=== PATIENT | female | born 1960 | race Caucasian/White ===

== ENCOUNTER 2017-10-14 03:45 | Emergency (ER) | payer OTHER ==
[~2017-10-14] VITALS: Ht 170.2 cm; Wt 90.7 kg
[~2017-10-14 03:45] MED LIST: AUGMENTIN 875875 MG PO; AZOR 10-20 MG1 EACH; AZOR 5-40 MG T1 EACH; COMBIVENT INH; COZAAR 25 MG TA25 M2; NEXIUM 40 MG CA40 M1; PREDNISONE 20 M20 M1 PO; PREDNISONE50 MG PO; PREMARIN0.625 MG; TORADOL 10 MG T10 MG PO; TRAMADOL 50 MG50 MG; ZPAK PO
[2017-10-14] MEDS ORDERED: PROTONIX40 M1 (04:00)
[2017-10-14] MEDS ORDERED: NORVASC5 MG PO (04:00)
[2017-10-14] MEDS ORDERED: CELEBREX 200 M200 M1 (04:01)
[2017-10-14] MEDS ORDERED: PREDNISONE50 MG PO (04:59)
[2017-10-14 05:11] VITALS: BP 105/52
--- NOTE | 2017-10-14 15:47 | EKG ---
[place] [address] ELECTROCARDIOGRAM REPORT Name: LION DEAL Room: [facility]#: [id number] Admission: 10/14/17 Attend Phys: Discharge: 10/14/17 Date of : 62 Report #: [id number] THIS REPORT FOR: //name// [facility] ED Test Date: 2017-10-14 Test Time: 04:17:50 Pat Name: LION DEAL Department: Room: Gender: F Channel Sales Manager: [id number] : 1960 Requested By: Katarina Vasques Order Number: [id number] MD: Landry Elaine Measurements Intervals [place] Rate: 87 P: 44 SC: 147 QRS: 31 QRSD: 102 T: 13 QT: 353 QTc: 425 Interpretive Statements Sinus rhythm No previous ECG available for comparison Electronically Signed On 10-14-2017 15:47:20 SKIN CARE THERAPIST by Landry Elaine [email or web address] <ELECTRONICALLY SIGNED> By: Landry Elaine MD, LOCATED WITHIN [facility] 10/14/17 1547 0417 0417 Landry Elaine MD, FACC /EPI
== END 2017-10-14 05:11 | disposition home or self-care (01) ==
LOC: M.ERS 03:45
DX: R09.1 Pleurisy (principal); I10 Essential (primary) hypertension; Z86.19 Personal history of other infectious and parasitic diseases; Z88.2 Allergy status to sulfonamides; Z88.1 Allergy status to other antibiotic agents; Z87.891 Personal history of nicotine dependence

== ENCOUNTER → 2017-10-20 | Outpatient (CLI) | payer OTHER ==
[~2017-10-20] MED LIST changes: +AUGMENTIN 875-1 EACH PO; +BENICAR40 MG PO; +BENTYL 10 MG CA10 M1 PO; +CELEBREX 200 M200 M1; +LIDOPATCH1 EACH TOP; +LOPERAMIDE 2 MG2 M1 PO; +LUNESTA1 MG PO; +NORVASC5 MG PO; +PROAIR HFA8.5 GM INH; +PROTONIX40 M1; +SINGULAIR 10 MG10 M1 PO; +TRAMADOL 50 MG50 MG PO
--- NOTE | 2017-10-20 15:02 | 2DMMODE ---
[place] [address] 2 D/M-MODE ECHOCARDIOGRAM Name: LION DEAL Room: [facility]#: [id number] Admission: 10/20/17 Attend Phys: Mikhail Kruse MD Discharge: Date of : 62 Date of Service: 10/20/17 1501 Report #: [id number] THIS REPORT FOR: //name// APPROVED REPORT Study performed: 10/20/2017 09:06:54 EXAM: Comprehensive 2D, Doppler, and color-flow Echocardiogram Patient Location: Out-Patient Status: routine BSA: 2.02 HR: 84 bpm BP: 148/80 mmHg Other Information Study Quality: Good Indications Dyspnea 2D Dimensions LVEF(%): 74.83 (>50%) IVSd: 8.59 (7-11mm) LVOT Diam: 19.66 (18-24mm) LVDd: 48.53 mm PWd: 10.84 (7-11mm) Ascending Ao: 28.88 (22-36mm) LVDs: 27.30 (25-40mm) Aortic Root: 24.83 mm Latham's LVEF: 74.83 % Volumes Left Atrial Volume (Systole) LA ESV Index: 22.00 mL/m2 Aortic Valve AoV Peak Mayito.: 1.46 m/s AO Peak Gr.: 8.53 mmHg LVOT Max P.02 mmHg AO Mean Gr.: 4.31 mmHg LVOT Mean P.70 mmHg LVOT Max V: 0.87 m/s AO V2 VTI: 25.19 cm LVOT Mean V: 0.61 m/s LAN (VTI): 2.43 cm2 LVOT V1 VTI: 20.18 cm Mitral Valve E/A Ratio: 1.05 MV Decel. Time: 236.20 [place] [address] 2 D/M-MODE ECHOCARDIOGRAM Name: LION DEAL Room: [facility]#: [id number] Admission: 10/20/17 Attend Phys: Mikhail Kruse MD Discharge: Date of : 62 Date of Service: 10/20/17 1501 Report #: [id number] MV E Max Mayito.: 0.86 m/s MV PHT: 68.50 ms MVA (PHT): 3.21 cm2 TDI E/Lateral E': 6.14 E/Medial E': 7.17 Medial E' Mayito.: 0.12 m/s Lateral E' Mayito.: 0.14 m/s Pulmonary Valve PV Peak Mayito.: 1.29 m/s PV Peak Gr.: 6.68 mmHg Tricuspid Valve TR Peak Gr.: 26.69 mmHg RVSP: 31.69 mmHg Left Ventricle The left ventricle is normal size. There is normal LV segmental wall motion. There is normal left ventricular wall thickness. Left ventricular systolic function is normal. The left ventricular ejection fraction is within the normal range. LVEF is 55-60%. The left ventricular diastolic function is normal. Right Ventricle The right ventricle is normal size. The right ventricular systolic function is normal. Atria The left atrium size is normal. The right atrium size is normal. Aortic Valve Aortic valve is mildly calcified. Mild aortic regurgitation. There is no aortic valvular stenosis. Mitral Valve The mitral valve is normal in structure. There is no mitral valve regurgitation noted. No evidence of mitral valve stenosis. Tricuspid Valve The tricuspid valve is normal in structure. Mild tricuspid regurgitation. The RVSP is _35 mmHg. Pulmonic Valve The pulmonary valve is normal in structure. There is no pulmonic [place] [address] 2 D/M-MODE ECHOCARDIOGRAM Name: LION DEAL Room: [facility]#: [id number] Admission: 10/20/17 Attend Phys: Mikhail Kruse MD Discharge: Date of : 62 Date of Service: 10/20/17 1501 Report #: [id number] Great Vessels The aortic root is normal in size. IVC is normal in size and collapses with >50% inspiration Pericardium There is no pericardial effusion. <Conclusion> LVEF is 55-60%. <ELECTRONICALLY SIGNED> By: Andres Stanley MD, FACC 10/20/17 1501 150 150 Andres Stanley MD, FACC /INF
== END ==
LOC: M.CRD 08:17
DX: I08.2 Rheumatic disorders of both aortic and tricuspid valves (principal)

== ENCOUNTER 2018-06-25 20:38 | Emergency (ER) | payer OTHER ==
[~2018-06-25] VITALS: Ht 170.2 cm; Wt 90.7 kg
[~2018-06-25 20:38] MED LIST changes: -AUGMENTIN 875-1 EACH PO; -BENICAR40 MG PO; -BENTYL 10 MG CA10 M1 PO; -LIDOPATCH1 EACH TOP; -LOPERAMIDE 2 MG2 M1 PO; -LUNESTA1 MG PO; -PROAIR HFA8.5 GM INH; -SINGULAIR 10 MG10 M1 PO; -TRAMADOL 50 MG50 MG PO
[2018-06-25] MEDS ORDERED: BENICAR40 MG PO (20:47)
[2018-06-25] MEDS ORDERED: SINGULAIR 10 MG10 M1 PO (20:48)
[2018-06-25] MEDS ORDERED: TRAMADOL 50 MG50 MG PO (20:49)
[2018-06-25] MEDS ORDERED: LOPERAMIDE 2 MG2 M1 PO (20:49)
[2018-06-25] MEDS ORDERED: LIDOPATCH1 EACH TOP (20:49)
[2018-06-25] MEDS ORDERED: BENTYL 10 MG CA10 M1 PO (20:49)
[2018-06-25] MEDS ORDERED: LUNESTA1 MG PO (20:50)
[2018-06-25 21:32] LABS: ABSOLUTE BASOPHILS 0.1 thou/uL (0.0-0.2); ABSOLUTE LYMPHOCYTES 1.5 thou/uL (0.8-5.3); ABSOLUTE MONOCYTES 0.9 thou/uL (0.0-1.2); ABSOLUTE NEUTROPHILS 12.3 thou/uL (1.6-8.1); BASOPHILS 0.3 %; EOSINOPHILS 0.2 %; HEMATOCRIT 25.6 % (37.0-47.0); HEMOGLOBIN 7.6 gm/dL (12.0-15.0); LYMPHOCYTES 10.1 %; MCH 21.2 pg (26.0-34.0); MCHC 29.8 g/dL (28.0-37.0); MCV 71.2 fL (80.0-100.0); MONOCYTES 6.4 %; MPV 6.9 fl. (7.2-11.1); NUCLEATED RBCS 0 /100WBC; PLATELET COUNT* 547 thou/uL (150-400); RDW-CV 16.8 % (10.5-14.5); WBC 14.9 thou/uL (4.0-11.0)
[2018-06-25 21:36] LABS: ANION GAP 4 mmol/L (7-16); BUN 13 mg/dL (7-18); CALCIUM 8.1 mg/dL (8.5-10.1); CHLORIDE 102 mmol/L (98-107); CO2 30 mmol/L (21-32); CREATININE 0.8 mg/dL (0.6-1.3); GLUCOSE 116 mg/dL (70-99); POTASSIUM 3.7 mmol/L (3.5-5.1); SODIUM 136 mmol/L (136-145)
[2018-06-25 21:47] LABS: ALBUMIN 3.4 g/dL (3.4-5.0); ALKALINE PHOSPHATASE 56 U/L (46-116); SGOT 10 U/L (15-37); SGPT 13 U/L (30-65); TOTAL BILIRUBIN 0.7 mg/dL (<0.1-1.0); TOTAL PROTEIN 6.7 g/dL (6.4-8.2); TROPONIN-I LEVEL <0.06 ng/mL (<0.06)
[2018-06-25 22:10] LABS: INFLUENZA A ANTIGEN None Detected (None Detect); INFLUENZA B ANTIGEN None Detected (None Detect)
[2018-06-25 22:43] LABS: HYPOCHROMASIA 2+
[2018-06-25 22:44] LABS: MICROCYTES 2+; PLATELET ESTIMATE INCREASED
[2018-06-25] MEDS ORDERED: AUGMENTIN 875-1 EACH PO (22:49)
[2018-06-25] MEDS ORDERED: PROAIR HFA8.5 GM INH (22:49)
[2018-06-25 23:03] VITALS: BP 134/67
--- NOTE | 2018-06-26 14:00 | EKG ---
[place] [address] ELECTROCARDIOGRAM REPORT Name: TOYINLION AUSTIN Room: [facility]#: [id number] Admission: 06/25/18 Attend Phys: Discharge: 06/25/18 Date of : 62 Report #: [id number] THIS REPORT FOR: //name// [facility] ED Test Date: 2018-06-25 Test Time: 21:08:01 Pat Name: LION DEAL Department: Room: Gender: F Dry Mill Operator: RIGOBERTO : 1960 Requested By: Deepti Christy Order Number: [id number] MD: Rodriguez Fairbanks Measurements Intervals [place] Rate: 105 P: 30 ID: 136 QRS: 21 QRSD: 97 T: 19 QT: 324 QTc: 429 Interpretive Statements Sinus tachycardia RSR' in V1 or V2, probably normal variant Compared to ECG 10/14/2017 04:17:50 RSR' in V1 or V2 now present Sinus rhythm no longer present Electronically Signed On 06-26-2018 13:59:56 CDT by Rodriguez Fairbanks [email or web address] <ELECTRONICALLY SIGNED> By: Ciera Fairbanks MD, [facility] 06/26/18 1359 07 07 F. Rodriguez Fairbanks MD, [facility] /EPI
== END 2018-06-25 23:04 | disposition home or self-care (01) ==
LOC: M.ERS 20:38
PROVIDERS: Nurse Practitioner Family
DX: J18.9 Pneumonia, unspecified organism (principal); D64.9 Anemia, unspecified; I10 Essential (primary) hypertension; Z88.1 Allergy status to other antibiotic agents; Z88.8 Allergy status to other drugs, medicaments and biological substances; Z87.891 Personal history of nicotine dependence

== ENCOUNTER → 2018-08-03 | Outpatient (CLI) | payer OTHER ==
[~2018-08-03] MED LIST changes: +AUGMENTIN 875-1 EACH PO; +BENICAR40 MG PO; +BENTYL 10 MG CA10 M1 PO; +LIDOPATCH1 EACH TOP; +LOPERAMIDE 2 MG2 M1 PO; +LUNESTA1 MG PO; +PROAIR HFA8.5 GM INH; +SINGULAIR 10 MG10 M1 PO; +TRAMADOL 50 MG50 MG PO
[2018-08-03 12:49] LABS: HEMOGLOBIN 12.1 gm/dL (12.0-15.0); MCH 26.3 pg (26.0-34.0); MCHC 31.8 g/dL (28.0-37.0); MCV 82.8 fL (80.0-100.0); MPV 7.1 fl. (7.2-11.1); NUCLEATED RBCS 0 /100WBC; PLATELET COUNT* 470 thou/uL (150-400); RBC 4.58 mil/uL (4.20-5.00); RDW-CV 25.1 % (10.5-14.5); WBC 8.1 thou/uL (4.0-11.0)
[2018-08-03 13:38] LABS: ABSOLUTE BASOPHILS 0.1 thou/uL (0.0-0.2); ABSOLUTE EOSINOPHILS 0.2 thou/uL (0.0-0.7); ABSOLUTE LYMPHOCYTES 2.1 thou/uL (0.8-5.3); ABSOLUTE MONOCYTES 0.8 thou/uL (0.0-1.2); ABSOLUTE NEUTROPHILS 4.9 thou/uL (1.6-8.1); PLATELET ESTIMATE INCREASED
[2018-08-03 13:39] LABS: ANISOCYTOSIS 3+
[2018-08-03 13:40] LABS: MICROCYTES 2+
== END ==
LOC: M.LAB 12:18
DX: K44.9 Diaphragmatic hernia without obstruction or gangrene (principal); M41.84 Other forms of scoliosis, thoracic region; D50.9 Iron deficiency anemia, unspecified; I25.10 Atherosclerotic heart disease of native coronary artery without angina pectoris

== ENCOUNTER 2018-09-14 09:11 | Emergency (ER) | payer OTHER ==
[~2018-09-14] VITALS: Ht 170.2 cm; Wt 90.7 kg
[2018-09-14] MEDS ORDERED: BENADRYL25 MG PO (09:26)
[2018-09-14] MEDS ORDERED: MELATONIN10 M1 PO (09:26)
[2018-09-14] MEDS ORDERED: HYDROCODONE-AP1 EAC6 PO (12:00)
[2018-09-14 12:22] VITALS: BP 139/77
== END 2018-09-14 12:23 | disposition home or self-care (01) ==
LOC: M.ERS 09:11
DX: S52.592A Other fractures of lower end of left radius, initial encounter for closed fracture (principal); S52.612A Displaced fracture of left ulna styloid process, initial encounter for closed fracture; I10 Essential (primary) hypertension; Z87.891 Personal history of nicotine dependence; Z88.1 Allergy status to other antibiotic agents; Z88.2 Allergy status to sulfonamides; Z88.8 Allergy status to other drugs, medicaments and biological substances; Z87.01 Personal history of pneumonia (recurrent); Z86.19 Personal history of other infectious and parasitic diseases; Z86.2 Personal history of diseases of the blood and blood-forming organs and certain disorders involving the immune mechanism; W18.39XA Other fall on same level, initial encounter; Y93.89 Activity, other specified; Y92.89 Other specified places as the place of occurrence of the external cause; Y99.8 Other external cause status

== ENCOUNTER → 2018-12-16 | Outpatient (CLI) | payer OTHER ==
[~2018-12-16] MED LIST changes: +BENADRYL25 MG PO; +HYDROCODONE-AP1 EAC6 PO; +MELATONIN10 M1 PO
[2018-12-16 08:19] LABS: HEMATOCRIT 35.8 % (37.0-47.0); HEMOGLOBIN 11.9 gm/dL (12.0-15.0); MCH 29.5 pg (26.0-34.0); MCHC 33.4 g/dL (28.0-37.0); MCV 88.3 fL (80.0-100.0); MPV 7.4 fl. (7.2-11.1); RBC 4.05 mil/uL (4.20-5.00); RDW-CV 13.6 % (10.5-14.5); WBC 6.9 thou/uL (4.0-11.0)
[2018-12-16 08:54] LABS: ALBUMIN 3.7 g/dL (3.4-5.0); CALCIUM 8.7 mg/dL (8.5-10.1); CREATININE 0.8 mg/dL (0.6-1.3); POTASSIUM 4.2 mmol/L (3.5-5.1); TOTAL BILIRUBIN 0.5 mg/dL (<0.1-1.0); URIC ACID* 5.8 mg/dL (2.6-7.2)
== END ==
LOC: M.LAB 07:48
PROVIDERS: Family Medicine
DX: E55.9 Vitamin D deficiency, unspecified (principal); M79.10 Myalgia, unspecified site

== ENCOUNTER 2019-01-16 06:32 | Emergency (ER) | payer OTHER ==
[~2019-01-16] VITALS: Ht 170.2 cm; Wt 90.7 kg
[2019-01-16] MEDS ORDERED: PROTONIX40 M1 PO (06:41)
[2019-01-16 07:22] LABS: ABSOLUTE LYMPHOCYTES 1.2 thou/uL (0.8-5.3); ABSOLUTE MONOCYTES 0.7 thou/uL (0.0-1.2); ABSOLUTE NEUTROPHILS 3.7 thou/uL (1.6-8.1); BASOPHILS 0.5 %; EOSINOPHILS 0.4 %; HEMATOCRIT 34.8 % (37.0-47.0); HEMOGLOBIN 11.5 gm/dL (12.0-15.0); LYMPHOCYTES 20.8 %; MCH 28.7 pg (26.0-34.0); MCHC 33.1 g/dL (28.0-37.0); MCV 86.8 fL (80.0-100.0); MPV 7.5 fl. (7.2-11.1); NUCLEATED RBCS 0 /100WBC; PLATELET COUNT* 366 thou/uL (150-400); POLYS 65.3 %; RBC 4.01 mil/uL (4.20-5.00); RDW-CV 13.2 % (10.5-14.5); WBC 5.6 thou/uL (4.0-11.0)
[2019-01-16 07:55] LABS: ALBUMIN 3.3 g/dL (3.4-5.0); ALKALINE PHOSPHATASE 50 U/L (46-116); ANION GAP 10 mmol/L (7-16); BUN 13 mg/dL (7-18); CALCIUM 8.4 mg/dL (8.5-10.1); CHLORIDE 105 mmol/L (98-107); CO2 26 mmol/L (21-32); CREATININE 0.9 mg/dL (0.6-1.3); GLUCOSE 103 mg/dL (70-99); LIPASE 194 U/L (73-393); POTASSIUM 3.3 mmol/L (3.5-5.1); SGOT 18 U/L (15-37); SGPT 19 U/L (30-65); SODIUM 141 mmol/L (136-145); TOTAL BILIRUBIN 0.2 mg/dL (<0.1-1.0); TOTAL PROTEIN 6.6 g/dL (6.4-8.2); TROPONIN-I LEVEL <0.06 ng/mL (<0.06)
[2019-01-16 07:55] LABS: URINE BILIRUBIN NEGATIVE (Negative); URINE BLOOD NEGATIVE (Negative); URINE CLARITY CLEAR; URINE COLOR YELLOW; URINE GLUCOSE-RANDOM NEGATIVE (Negative); URINE KETONES NEGATIVE (Negative); URINE LEUKOCYTES-REFLEX NEGATIVE (Negative); URINE NITRITE-REFLEX NEGATIVE (Negative); URINE PROTEIN TRACE (Negative); URINE SPECIFIC GRAVITY >= 1.030 (1.005-1.030); URINE UROBILINOGEN 0.2 E.U./dl (0.2-1.0)
[2019-01-16] MEDS ORDERED: FLAGYL500 M1 PO (08:02)
[2019-01-16 08:34] VITALS: BP 115/66
--- NOTE | 2019-01-16 13:12 | EKG ---
[place] [address] ELECTROCARDIOGRAM REPORT Name: LION DEAL Room: [facility]#: [id number] Admission: 01/16/19 Attend Phys: Discharge: 01/16/19 Date of : 62 Report #: [id number] THIS REPORT FOR: //name// [facility] ED Test Date: 2019-01-16 Test Time: 07:13:38 Pat Name: LION DEAL Department: Room: Gender: F Chief Nursing Executive: : 1960 Requested By: Raphael Cobos Order Number: [id number] MD: Andres Stanley Measurements Intervals [place] Rate: 90 P: 36 [place]: 142 QRS: 24 QRSD: 109 T: 14 QT: 346 QTc: 424 Interpretive Statements Sinus rhythm Compared to ECG 06/25/2018 21:08:01 Sinus tachycardia no longer present Electronically Signed On 01-16-2019 13:12:17 CDT by Andres Stanley [email or web address] <ELECTRONICALLY SIGNED> By: Andres Stanley MD, [facility] 01/16/19 1312 0713 2 Andres Stanley MD, FACC /EPI
== END 2019-01-16 08:35 | disposition home or self-care (01) ==
LOC: M.ERS 06:32
PROVIDERS: Emergency Medicine Emergency Medical Services
DX: R11.2 Nausea with vomiting, unspecified (principal); R19.7 Diarrhea, unspecified; K58.9 Irritable bowel syndrome, unspecified; I10 Essential (primary) hypertension; Z87.891 Personal history of nicotine dependence; Z88.2 Allergy status to sulfonamides; Z88.8 Allergy status to other drugs, medicaments and biological substances; Z88.1 Allergy status to other antibiotic agents; Z86.2 Personal history of diseases of the blood and blood-forming organs and certain disorders involving the immune mechanism

== ENCOUNTER → 2020-03-21 | Outpatient (CLI) | payer OTHER ==
[~2020-03-21] MED LIST changes: +FLAGYL500 M1 PO; +PROTONIX40 M1 PO
== END ==
LOC: M.RAD 08:38
PROVIDERS: ATTEND Family Medicine
DX: Z12.31 Encounter for screening mammogram for malignant neoplasm of breast (principal); N64.89 Other specified disorders of breast

== ENCOUNTER 2020-04-15 02:06 | Emergency (ER) | payer OTHER | END 2020-04-15 06:02 | disposition home or self-care (01) | LOC: M.ERS 02:06 | DX: J18.9 Pneumonia, unspecified organism (principal); Z20.828 Contact with and (suspected) exposure to other viral communicable diseases; I10 Essential (primary) hypertension; F17.210 Nicotine dependence, cigarettes, uncomplicated; Z88.1 Allergy status to other antibiotic agents; Z88.2 Allergy status to sulfonamides; Z88.8 Allergy status to other drugs, medicaments and biological substances; Z86.19 Personal history of other infectious and parasitic diseases; Z86.2 Personal history of diseases of the blood and blood-forming organs and certain disorders involving the immune mechanism ==

== ENCOUNTER 2020-06-29 02:44 | Emergency (ER) | payer OTHER ==
[~2020-06-29] VITALS: Ht 170.2 cm; Wt 86.2 kg
[~2020-06-29 02:44] MED LIST changes: +HYDROCODON-ACE1 EAC8 PO
[2020-06-29] MEDS ORDERED: COZAAR 25 MG TA25 M1 PO (03:02)
[2020-06-29 03:15] LABS: ABSOLUTE BASOPHILS 0.1 thou/uL (0.0-0.2); ABSOLUTE LYMPHOCYTES 1.9 thou/uL (0.8-5.3); ABSOLUTE MONOCYTES 0.9 thou/uL (0.0-1.2); ABSOLUTE NEUTROPHILS 9.3 thou/uL (1.6-8.1); BASOPHILS 0.7 %; EOSINOPHILS 0.1 %; HEMATOCRIT 33.2 % (37.0-47.0); HEMOGLOBIN 10.6 gm/dL (12.0-15.0); LYMPHOCYTES 15.5 %; MCH 25.3 pg (26.0-34.0); MCHC 32.1 g/dL (28.0-37.0); MCV 78.9 fL (80.0-100.0); MONOCYTES 7.2 %; MPV 6.7 fl. (7.2-11.1); NUCLEATED RBCS 0 /100WBC; PLATELET COUNT* 529 thou/uL (150-400); POLYS 76.5 %; RBC 4.21 mil/uL (4.20-5.00); RDW-CV 16.4 % (10.5-14.5); WBC 12.2 thou/uL (4.0-11.0)
[2020-06-29 03:25] LABS: CALCIUM 8.9 mg/dL (8.5-10.1); CREATININE 2.1 mg/dL (0.6-1.3); POTASSIUM 4.7 mmol/L (3.5-5.1)
[2020-06-29 03:28] LABS: PROTIME 10.4 Seconds (9.20-11.50)
[2020-06-29 03:43] LABS: ALBUMIN 4.2 g/dL (3.4-5.0); MAGNESIUM 1.9 mg/dL (1.8-2.4); TOTAL BILIRUBIN 0.4 mg/dL (<0.1-1.0); TOTAL PROTEIN 7.4 g/dL (6.4-8.2)
[2020-06-29 05:15] LABS: URINE BILIRUBIN NEGATIVE (Negative); URINE BLOOD NEGATIVE (Negative); URINE CLARITY CLEAR; URINE COLOR YELLOW; URINE GLUCOSE-RANDOM NEGATIVE (Negative); URINE KETONES NEGATIVE (Negative); URINE LEUKOCYTES-REFLEX NEGATIVE (Negative); URINE NITRITE-REFLEX NEGATIVE (Negative); URINE PROTEIN NEGATIVE (Negative); URINE UROBILINOGEN 0.2 E.U./dl (0.2-1.0)
[2020-06-29 06:03] VITALS: BP 117/60
--- NOTE | 2020-06-29 10:29 | EKG ---
[place] [address] ELECTROCARDIOGRAM REPORT Name: TOYINLION AUSTIN Room: [facility]#: [id number] Admission: 06/29/20 Attend Phys: Discharge: 06/29/20 Date of : 62 Date of Service: 06/29/20 0258 Report #: [id number] THIS REPORT FOR: //name// [facility] ED Test Date: 2020-06-29 Test Time: 02:58:52 Pat Name: LION DEAL Department: Room: Gender: F V Belt Skiver: [place] : 1960 Requested By: Katarina Vasques Order Number: [id number] MD: Andres Stanley Measurements Intervals [place] Rate: 98 P: 34 [place]: 135 QRS: 25 QRSD: 112 T: 24 QT: 337 QTc: 431 Interpretive Statements Sinus rhythm Probable left atrial enlargement Borderline intraventricular conduction delay Compared to ECG 01/16/2019 07:13:38 No significant changes Electronically Signed On 06-29-2020 10:29:13 CDT by Andres Stanley [email or web address] <ELECTRONICALLY SIGNED> By: Andres Stanley MD, [facility] 06/29/20 1029 0258 0258 Andres Stanley MD, [facility] /EPI
== END 2020-06-29 05:48 | disposition home or self-care (01) ==
LOC: M.ERS 02:44
PROVIDERS: Emergency Medicine
DX: N17.9 Acute kidney failure, unspecified (principal); R19.7 Diarrhea, unspecified; I10 Essential (primary) hypertension; Z87.891 Personal history of nicotine dependence; Z87.01 Personal history of pneumonia (recurrent); Z86.2 Personal history of diseases of the blood and blood-forming organs and certain disorders involving the immune mechanism; Z86.19 Personal history of other infectious and parasitic diseases; Z88.2 Allergy status to sulfonamides; Z88.1 Allergy status to other antibiotic agents; Z88.8 Allergy status to other drugs, medicaments and biological substances

== ENCOUNTER → 2020-07-01 | Outpatient (CLI) | payer OTHER ==
[~2020-07-01] MED LIST changes: +COZAAR 25 MG TA25 M1 PO
[2020-07-01 12:40] LABS: URINE BILIRUBIN NEGATIVE (Negative); URINE BLOOD NEGATIVE (Negative); URINE CLARITY CLEAR; URINE COLOR YELLOW; URINE GLUCOSE-RANDOM NEGATIVE (Negative); URINE KETONES NEGATIVE (Negative); URINE LEUKOCYTES-REFLEX NEGATIVE (Negative); URINE NITRITE-REFLEX NEGATIVE (Negative); URINE PROTEIN NEGATIVE (Negative); URINE SPECIFIC GRAVITY 1.025 (1.005-1.030); URINE UROBILINOGEN 0.2 E.U./dl (0.2-1.0)
[2020-07-01 12:49] LABS: HEMATOCRIT 30.8 % (37.0-47.0); MCH 25.6 pg (26.0-34.0); MCHC 32.3 g/dL (28.0-37.0); MCV 79.2 fL (80.0-100.0); MPV 7.1 fl. (7.2-11.1); RBC 3.89 mil/uL (4.20-5.00); RDW-CV 15.9 % (10.5-14.5); WBC 5.6 thou/uL (4.0-11.0)
[2020-07-01 12:55] LABS: ALBUMIN 3.8 g/dL (3.4-5.0); ALKALINE PHOSPHATASE 59 U/L (46-116); ANION GAP 8 mmol/L (7-16); BUN 20 mg/dL (7-18); CHLORIDE 105 mmol/L (98-107); CHOLESTEROL 151 mg/dL (<200); CO2 28 mmol/L (21-32); CREATININE 1.2 mg/dL (0.6-1.3); GLUCOSE 139 mg/dL (70-99); HDL CHOLESTEROL 60 mg/dL (>40); LDL CHOLESTEROL 78 mg/dL (<100); POTASSIUM 4.1 mmol/L (3.5-5.1); SGOT 13 U/L (15-37); SGPT 20 U/L (30-65); SODIUM 141 mmol/L (136-145); TC:HDL 2.5 Ratio (Not establshd); TOTAL BILIRUBIN 0.4 mg/dL (<0.1-1.0); TRIGLYCERIDE 67 mg/dL (<150); VLDL 13 mg/dL (<40)
[2020-07-01 12:56] LABS: SERUM ASSESSMENT Clear
== END ==
LOC: M.LAB 12:12
PROVIDERS: ATTEND Family Medicine
DX: Z00.00 Encounter for general adult medical examination without abnormal findings (principal)

== ENCOUNTER → 2020-07-15 | Outpatient (CLI) | payer OTHER ==
[2020-07-15 11:17] LABS: ABSOLUTE BASOPHILS 0.1 thou/uL (0.0-0.2); ABSOLUTE EOSINOPHILS 0.1 thou/uL (0.0-0.7); ABSOLUTE LYMPHOCYTES 1.5 thou/uL (0.8-5.3); ABSOLUTE MONOCYTES 0.6 thou/uL (0.0-1.2); ABSOLUTE NEUTROPHILS 3.8 thou/uL (1.6-8.1); BASOPHILS 0.9 %; EOSINOPHILS 2.2 %; HEMATOCRIT 30.6 % (37.0-47.0); HEMOGLOBIN 9.6 gm/dL (12.0-15.0); LYMPHOCYTES 24.5 %; MCH 24.1 pg (26.0-34.0); MCHC 31.3 g/dL (28.0-37.0); MCV 76.9 fL (80.0-100.0); MONOCYTES 9.5 %; MPV 6.5 fl. (7.2-11.1); NUCLEATED RBCS 0 /100WBC; PLATELET COUNT* 481 thou/uL (150-400); POLYS 62.9 %; RBC 3.97 mil/uL (4.20-5.00); RDW-CV 15.8 % (10.5-14.5); WBC 6.1 thou/uL (4.0-11.0)
[2020-07-15 11:29] LABS: CALCIUM 9.1 mg/dL (8.5-10.1); CREATININE 0.9 mg/dL (0.6-1.3); POTASSIUM 4.4 mmol/L (3.5-5.1)
== END ==
LOC: M.LAB 10:45
PROVIDERS: ATTEND Family Medicine
DX: N28.9 Disorder of kidney and ureter, unspecified (principal)

== ENCOUNTER 2020-08-18 11:45 | Emergency (ER) | payer OTHER ==
[~2020-08-18] VITALS: Ht 170.2 cm; Wt 85.3 kg
[2020-08-18 12:35] LABS: INFLUENZA A ANTIGEN Negative (Negative); INFLUENZA B ANTIGEN Negative (Negative)
[2020-08-18 13:37] LABS: ABSOLUTE BASOPHILS 0.1 thou/uL (0.0-0.2); ABSOLUTE EOSINOPHILS 0.1 thou/uL (0.0-0.7); ABSOLUTE LYMPHOCYTES 1.9 thou/uL (0.8-5.3); ABSOLUTE MONOCYTES 0.7 thou/uL (0.0-1.2); ABSOLUTE NEUTROPHILS 6.5 thou/uL (1.6-8.1); BASOPHILS 0.7 %; EOSINOPHILS 0.7 %; HEMATOCRIT 29.2 % (37.0-47.0); HEMOGLOBIN 9.3 gm/dL (12.0-15.0); LYMPHOCYTES 20.7 %; MCH 24.9 pg (26.0-34.0); MCHC 31.9 g/dL (28.0-37.0); MONOCYTES 7.8 %; MPV 6.8 fl. (7.2-11.1); NUCLEATED RBCS 0 /100WBC; PLATELET COUNT* 396 thou/uL (150-400); POLYS 70.1 %; RBC 3.74 mil/uL (4.20-5.00); RDW-CV 18.5 % (10.5-14.5); WBC 9.3 thou/uL (4.0-11.0)
[2020-08-18 13:43] LABS: CALCIUM 8.8 mg/dL (8.5-10.1); CREATININE 0.9 mg/dL (0.6-1.3); POTASSIUM 4.1 mmol/L (3.5-5.1)
[2020-08-18] MEDS ORDERED: AUGMENTIN 875-1 EACH PO (13:47)
[2020-08-18 13:57] VITALS: BP 123/101
== END 2020-08-18 13:54 | disposition home or self-care (01) ==
LOC: M.ERS 11:45
PROVIDERS: Emergency Medicine Emergency Medical Services; Nurse Practitioner Family
DX: J06.9 Acute upper respiratory infection, unspecified (principal); Z20.828 Contact with and (suspected) exposure to other viral communicable diseases; I10 Essential (primary) hypertension; Z79.899 Other long term (current) drug therapy; Z88.2 Allergy status to sulfonamides; Z88.1 Allergy status to other antibiotic agents; Z87.891 Personal history of nicotine dependence

== ENCOUNTER 2020-09-26 07:36 | Inpatient (IN) | payer OTHER ==
[~2020-09-26] VITALS: Ht 170.2 cm; Wt 86.2 kg
--- NOTE | ~2020-09-26 | CON ---
[address] [address] CONSULTATION Name: LION DEAL Room: [address] ADM IN M.R.#: [id number] Admission: 09/26/20 Attend Phys: Elidia Townsend Discharge: Date of : 62 Report #: [id number] THIS REPORT FOR: cc: Mikhail Kruse MD, Anthony MD ~ Kingsley Mcdonough DO DATE OF SERVICE: 09/27/2020 REFERRING PHYSICIAN: Dulce Arteaga MD REASON FOR CONSULTATION: Recurrent anemia. IMPRESSION: 1. Recurrent iron deficiency anemia, likely related to a large hiatal hernia with possible Seymour erosions plus documented history of cecal arteriovenous malformations. 2. Chronic acid reflux with regurgitation, requiring Protonix twice daily and Tums p.r.n. 3. Irritable bowel syndrome with constipation predominance. RECOMMENDATIONS: 1. The patient is anxious to go home and I believe it would be alright to do so. We can set her up for upper and lower endoscopy done on Wednesday, 09/30 at 11:00 a.m. in the hospital's OR. I have given her instructions on how to take a combination of magnesium citrate, Dulcolax tablets and MiraLax laxatives and we will plan on upper and lower endoscopy to be done on Wednesday. 2. Agree with iron infusions and we will also get her set up as an outpatient to see a hadoop architect for further iron infusions as an outpatient due to her chronic constipation. 3. We will also see if we can find an acceptable surgeon within [facility] to help correct her large hiatal hernia, which may be a paraesophageal hernia versus just a hiatal hernia. 4. I have discussed those plans with the patient as well and she is agreeable to proceed. 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 She was found to have a hemoglobin of 7.2. She has had chronic reflux for which she takes Protonix twice daily with fairly good results. She does have occasional regurgitation, particularly at night. She typically has her head elevated at night. She does not eat late at night. She had undergone upper and lower endoscopies by my partner, Dr. Smith, back in 08/2018 [place] [address] CONSULTATION Name: LION DEAL Room: [address] IN [facility]#: [id number] Admission: 09/26/20 Attend Phys: Elidia Townsend Discharge: Date of : 62 Report #: [id number] had a large hiatal hernia, reflux esophagitis and cecal AVMs, all of which were treated. She was then referred to a surgeon for hiatal hernia repair, but she fell and broke her hand and so never got follow up with the surgeon for the same. She does have occasional complaints of dysphagia, but nothing severe. She denies any complaints of any abdominal pain, but her bowels noted to be on the constipated side. She has no family history of peptic ulcer disease, colon polyps or colon cancer. She has not had a history of colon cancer or colon polyps in the past. Her last endoscopic studies performed in [address] Jos Portillo [facility] and revealed similar findings plus AVMs within the cecum. She is admitted to the hospital for further evaluation and treatment. She already received a transfusion and is going to get some iron infusion today. ALLERGIES: TRIMETHOPRIM, SULFAMETHOXAZOLE AND TROVAFLOXACIN. MEDICATIONS: At home include Protonix 40 mg twice daily, amlodipine, Benicar, Singulair, Ultram, Lidoderm patch, and Benadryl p.r.n. PAST MEDICAL AND SURGICAL HISTORY: Remarkable for hypertension. She has seasonal allergies, chronic acid reflux, chronic recurrent iron deficiency anemia, irritable bowel syndrome. She has history of hepatitis C and has undergone previous treatment, but the details of this are not discussed today. She has had previous tonsillectomy, adenoidectomy, breast augmentation. SOCIAL HISTORY: The patient is a former smoker. The patient drinks alcohol. FAMILY HISTORY: Negative. PHYSICAL EXAMINATION: GENERAL: A 60-year-old white female who is awake and alert. CARDIOPULMONARY: Revealed a regular rate and rhythm. LUNGS: Clear. ABDOMEN: Soft and not tender. No rebound or guarding noted. LABORATORY DATA: From admission revealed white count 8.3, hemoglobin 7.7, platelet count 502,000, MCV is 75.5 and RDW of 17.1. With transfusion, her hemoglobin is up to 8.2. Her sodium on was 141, potassium 4.1, chloride 108, bicarbonate is 27. Her BUN is 18, creatinine 1.0. Her GFR is 57. Total bilirubin 0.2, alkaline phosphatase 54, AST 14, ALT 17, her albumin is 3.3. Her iron saturation is 4%. Her B12 level 388 and folic acid level was 244. The patient underwent a full CT scan of the abdomen and pelvis back in March of this year, which was reviewed and revealed a large hiatal hernia. The [address] [place] [address] CONSULTATION Name: LION DEAL Room: [address] IN M.R.#: [id number] Admission: 09/26/20 Attend Phys: Elidia Townsend Discharge: Date of : 62 Report #: [id number] gallbladder did reveal a few gallstones, but she is asymptomatic. No other abnormalities were noted on CT scan. DISCUSSION: 1. At the present time, the patient has had problems with recurrent iron deficiency anemia. This is likely related to her hiatal hernia with Seymour erosions and we will certainly take a look to see what is going on within her upper GI tract. I will also take biopsies from her mall bowel at that time. We will also check her to ensure that she does not have underlying celiac disease, which could be a source of iron deficiency anemia, we can get this blood work drawn prior to her discharge. 2. The patient would like to go home today to be with her dog and we can arrange for her endoscopies to be done early next week at the hospital site. I have discussed the plans with the patient as well and the patient is agreeable to the same. By: 1242 Tavo1Kingsley Mcdonough DO /christie
[2020-09-26 07:41] VITALS: BP 129/62
[2020-09-26] MEDS ORDERED: NORVASC10 MG PO (07:43)
[2020-09-26] MEDS ORDERED: PROTONIX40 M2 PO (07:43)
[2020-09-26 07:57] LABS: ABSOLUTE BASOPHILS 0.1 thou/uL (0.0-0.2); ABSOLUTE EOSINOPHILS 0.2 thou/uL (0.0-0.7); ABSOLUTE LYMPHOCYTES 2.1 thou/uL (0.8-5.3); ABSOLUTE MONOCYTES 0.7 thou/uL (0.0-1.2); ABSOLUTE NEUTROPHILS 5.3 thou/uL (1.6-8.1); BASOPHILS 0.6 %; EOSINOPHILS 2.2 %; HEMATOCRIT 25.2 % (37.0-47.0); HEMOGLOBIN 7.7 gm/dL (12.0-15.0); LYMPHOCYTES 25.1 %; MCH 23.1 pg (26.0-34.0); MCHC 30.6 g/dL (28.0-37.0); MCV 75.5 fL (80.0-100.0); MONOCYTES 8.1 %; MPV 6.1 fl. (7.2-11.1); NUCLEATED RBCS 0 /100WBC; PLATELET COUNT* 502 thou/uL (150-400); RBC 3.34 mil/uL (4.20-5.00); RDW-CV 17.1 % (10.5-14.5); WBC 8.3 thou/uL (4.0-11.0)
[2020-09-26 08:07] LABS: CALCIUM 8.4 mg/dL (8.5-10.1); POTASSIUM 4.1 mmol/L (3.5-5.1)
[2020-09-26 08:17] LABS: ALBUMIN 3.3 g/dL (3.4-5.0); MAGNESIUM 1.9 mg/dL (1.8-2.4); TOTAL BILIRUBIN 0.2 mg/dL (<0.1-1.0); TOTAL PROTEIN 6.4 g/dL (6.4-8.2)
[2020-09-26 12:30] VITALS: BP 118/62
[2020-09-26 13:25] VITALS: BP 118/62
[2020-09-26 14:14] LABS: HEMATOCRIT 26.2 % (37.0-47.0); HEMOGLOBIN 8.2 gm/dL (12.0-15.0)
--- NOTE | 2020-09-26 14:24 | NUR ---
PT C/O EPIGASTRIC PAIN THAT RADIATES TO LEFT BACK AND SHOULDER 04/05. DR. RODRIGUES NOTIFIED.
[2020-09-26] MEDS ORDERED: BENICAR40 MG PO (15:50)
[2020-09-26] MEDS ORDERED: SINGULAIR 10 MG10 M1 PO (15:51)
[2020-09-26] MEDS ORDERED: LIDODERM1 EACH TRANSDERM (15:51)
[2020-09-26] MEDS ORDERED: TRAMADOL 50 MG50 MG PO (15:51)
[2020-09-26] MEDS ORDERED: DIPHENHIST50 MG PO (15:52)
--- NOTE | 2020-09-26 15:54 | NUR ---
PT CONTINUES TO C/O INCREASING EPIGASTRIC PAIN 7-05/[address] RODRIGUES NOTIFIED VIA [employer].
--- NOTE | 2020-09-26 16:26 | EKG ---
[place] [address] ELECTROCARDIOGRAM REPORT Name: TOYINLION NORMAN Room: [address] ADM IN M.R.#: [id number] Admission: 09/26/20 Attend Phys: Dulce Arteaga Discharge: Date of : 62 Date of Service: 09/26/20 0742 Report #: [id number] THIS REPORT FOR: //name// [facility] ED Test Date: 2020-09-26 Test Time: 07:42:15 Pat Name: LION DEAL Department: Room: [facility] Gender: F Human Services Assistant: JULIA : 1960 Requested By: Raphael Cobos Order Number: [id number] MD: Arnoldo Geiger Measurements Intervals [place] Rate: 101 P: 46 NM: 126 QRS: 35 QRSD: 104 T: 25 QT: 326 QTc: 423 Interpretive Statements Sinus tachycardia Possible left atrial enlargement Compared to ECG 06/29/2020 02:58:52 Sinus rhythm no longer present Electronically Signed On 09-26-2020 16:26:02 FORESTRY SUPPORT SPECIALIST by Arnoldo Geiger [email or web address] <ELECTRONICALLY SIGNED> By: Arnoldo Geiger MD, FACC 09/26/20 1626 0742 0742 Arnoldo Geiger MD, FAC /EPI
[2020-09-26 16:39] VITALS: BP 136/76
[2020-09-27] VITALS: BP 125/68
[2020-09-27 04:00] VITALS: BP 111/58
--- NOTE | 2020-09-27 05:30 | NUR ---
PT SLEPT OFF AND ON OVERNIGHT. REQUESTING PRN PAIN AND NAUSEA MEDS, GIVEN WITH GOOD RESULT. HAS BEEN NPO SINCE MIDNIGHT, GI TO CONSULT TODAY. NO EMESIS OVERNIGHT. UP AD CARLOS IN ROOM. STOOLSPECIMEN NEEDED, PT AWARE. NO LABS THIS MORNING. RWANTONINAT AND Fadi MENA IV. TELE SR. ABLE TO USE CALL LITE AND MAKE NEEDS KNOWN.
[2020-09-27 08:00] VITALS: BP 121/67
--- NOTE | 2020-09-27 11:17 | NUR ---
GUM COOK TRACKING SR. CONTINUES TO RIGHT HAVING EPI GASTRIC DISCOMFORT/CHEST PAIN - REPORTS UNCHANGES SINCE ADMISSION, WILL GIVE REPEAT PAIN MEDICATION WITH AM MEDS TO ASSIST WITH PAIN CONTROL. CALL LIGHT WITHIN REACH, WILL MONITOR.
[2020-09-27 13:01] VITALS: BP 121/77
[2020-09-27] MEDS ORDERED: FERREX 150150 MG PO (13:29)
[2020-09-27] MEDS ORDERED: HYDROCODON-ACE1 EAC7 PO (13:30)
[2020-09-27] MEDS ORDERED: CARDIZEM60 MG PO (13:30)
[2020-09-27] MEDS ORDERED: SENNA8.6 MG PO (13:31)
[2020-09-27] MEDS ORDERED: CALCIUM CARBON200 M1 PO (13:31)
[2020-09-27] MEDS ORDERED: NITROSTAT0.4 M1 PO (13:32)
[2020-09-27] MEDS ORDERED: AMITRIPTYLINE H10 M1 PO (13:32)
[2020-09-27] MEDS ORDERED: CITRATE OF MAG296 M1 PO (13:32)
[2020-09-27 13:57] VITALS: BP 121/77
--- NOTE | 2020-09-27 14:16 | NUR ---
HAND INSERTER OPERATOR TRACKING WITH NO CHANGE IN RHYTHM. DIET ADVANCED FROM NPO TO REGULAR DIET - TOLERATING SOUP, MASH POTATOES AND 1/2 SANDWICH WITH NO COMPLAINTS OF NAUSEA OR CHEST PAIN. DISCHARGE ORDERS RECEIVED. PATIENT EDUCATED ON DISCHARGE INSTRUCTIONS, VERBALIZED UNDERSTANDING HAVING NO QUESTIONS, GIVEN WRITTEN DISCHARGE INSTRUCTIONS FOR REINFORCEMENT TEACHING.
[2020-09-27 14:42] VITALS: BP 121/77
== END 2020-09-27 15:30 | disposition home or self-care (01) | DRG 392 ==
LOC: M.ERS 07:36 → M.TBA-ER 08:44 → M.2W 13:32
PROVIDERS: Emergency Medicine Emergency Medical Services; ADMIT Internal Medicine; ATTEND Internal Medicine
PROC: 30233N1 Transfusion of Nonautologous Red Blood Cells into Peripheral Vein, Percutaneous Approach (ICD-10-PCS; principal; 2020-09-26)
DX: K21.9 Gastro-esophageal reflux disease without esophagitis (principal); D62 Acute posthemorrhagic anemia; K92.2 Gastrointestinal hemorrhage, unspecified; I10 Essential (primary) hypertension; K58.1 Irritable bowel syndrome with constipation; R73.9 Hyperglycemia, unspecified; K44.9 Diaphragmatic hernia without obstruction or gangrene; K22.4 Dyskinesia of esophagus; Z20.828 Contact with and (suspected) exposure to other viral communicable diseases; T39.8X5A Adverse effect of other nonopioid analgesics and antipyretics, not elsewhere classified, initial encounter; Y92.89 Other specified places as the place of occurrence of the external cause; Z86.19 Personal history of other infectious and parasitic diseases; Z88.1 Allergy status to other antibiotic agents; Z88.2 Allergy status to sulfonamides; Z88.8 Allergy status to other drugs, medicaments and biological substances; Z87.891 Personal history of nicotine dependence

== ENCOUNTER 2020-09-30 09:32 | Inpatient (IN) | payer OTHER ==
[~2020-09-30] VITALS: Ht 170.2 cm; Wt 83.5 kg
--- NOTE | ~2020-09-30 | PROC ---
[address] [address] PROCEDURE REPORT Name: LION DEAL Room: [address] IN M.R.#: [id number] Admission: 09/30/20 Attend Phys: Barney Cunningham Discharge: 09/30/20 Date of : 62 Report #: [id number] THIS REPORT FOR: cc: Mikhail Kruse MD, Anthony MD ~ [facility],Medical Records Staff For GI report, please see the Provation report in Perceptive 7 content. By: 1502Medical Records Staff [facility] /HARJEET
[~2020-09-30 09:32] MED LIST changes: +AMITRIPTYLINE H10 M1 PO; +CALCIUM CARBON200 M1 PO; +CARDIZEM60 MG PO; +CITRATE OF MAG296 M1 PO; +DIPHENHIST50 MG PO; +FERREX 150150 MG PO; +HYDROCODON-ACE1 EAC7 PO; +LIDODERM1 EACH TRANSDERM; +NITROSTAT0.4 M1 PO; +NORVASC10 MG PO; +PROTONIX40 M2 PO; +SENNA8.6 MG PO
[2020-09-30 09:43] VITALS: BP 112/72
[2020-09-30 11:39] LABS: HEMATOCRIT 26.9 % (37.0-47.0); HEMOGLOBIN 8.7 gm/dL (12.0-15.0); MCH 24.8 pg (26.0-34.0); MCHC 32.2 g/dL (28.0-37.0); MCV 77.2 fL (80.0-100.0); MPV 6.8 fl. (7.2-11.1); NUCLEATED RBCS 0 /100WBC; PLATELET COUNT* 475 thou/uL (150-400); RBC 3.49 mil/uL (4.20-5.00); RDW-CV 18.7 % (10.5-14.5); WBC 8.5 thou/uL (4.0-11.0)
[2020-09-30 11:45] LABS: CALCIUM 9.2 mg/dL (8.5-10.1); CREATININE 1.1 mg/dL (0.6-1.3); POTASSIUM 4.1 mmol/L (3.5-5.1)
[2020-09-30 11:49] LABS: APTT 21.6 Seconds (25.0-31.3); PROTIME 10.6 Seconds (9.20-11.50)
[2020-09-30 11:56] LABS: ALBUMIN 3.7 g/dL (3.4-5.0); TOTAL BILIRUBIN 0.6 mg/dL (<0.1-1.0); TOTAL PROTEIN 6.9 g/dL (6.4-8.2)
[2020-09-30 12:05] LABS: URINE BILIRUBIN NEGATIVE (Negative); URINE BLOOD NEGATIVE (Negative); URINE CLARITY CLEAR; URINE COLOR YELLOW; URINE GLUCOSE-RANDOM NEGATIVE (Negative); URINE KETONES NEGATIVE (Negative); URINE LEUKOCYTES-REFLEX NEGATIVE (Negative); URINE NITRITE-REFLEX NEGATIVE (Negative); URINE PROTEIN NEGATIVE (Negative); URINE SPECIFIC GRAVITY >= 1.030 (1.005-1.030); URINE UROBILINOGEN 0.2 E.U./dl (0.2-1.0)
[2020-09-30 12:11] LABS: ABSOLUTE EOSINOPHILS 0.1 thou/uL (0.0-0.7); ABSOLUTE LYMPHOCYTES 1.5 thou/uL (0.8-5.3); ABSOLUTE MONOCYTES 0.3 thou/uL (0.0-1.2); ABSOLUTE NEUTROPHILS 6.5 thou/uL (1.6-8.1)
[2020-09-30 12:12] LABS: PLATELET ESTIMATE INCREASED
[2020-09-30 12:13] LABS: ANISOCYTOSIS 1+; HYPOCHROMASIA 2+; MACROCYTES Occasional
[2020-09-30 16:00] VITALS: BP 121/41
--- NOTE | 2020-09-30 16:59 | EKG ---
[place] [address] ELECTROCARDIOGRAM REPORT Name: TOYINJAGRUTILION NORMAN Room: [place] [address] ADM IN [facility]#: [id number] Admission: 09/30/20 Attend Phys: Jim Dudley Discharge: Date of : 62 Date of Service: 09/30/20 1149 Report #: [id number] THIS REPORT FOR: //name// [facility] ED Test Date: 2020-09-30 Test Time: 11:49:02 Pat Name: LION DEAL Department: Room: [facility] Gender: F Label Printer: JULIA : 1960 Requested By: Benny Menjivar Order Number: [id number] MD: Andres Stanley Measurements Intervals [place] Rate: 80 P: 39 SD: 143 QRS: 30 QRSD: 101 T: 20 QT: 361 QTc: 417 Interpretive Statements Sinus rhythm Probable left atrial enlargement Minimal ST elevation, anterior leads Compared to ECG 09/26/2020 10:58:50 No significant changes Electronically Signed On 09-30-2020 16:58:54 DRESSMAKER HELPER by Andres Stanley [email or web address] <ELECTRONICALLY SIGNED> By: Anrdes Stanley MD, [facility] 09/30/20 1658 1149 1149 Andres Stanley MD, [facility] /EPI
[2020-09-30 19:13] VITALS: BP 121/41
[2020-09-30 19:16] VITALS: BP 121/41
== END 2020-09-30 19:30 | disposition home or self-care (01) | DRG 378 ==
LOC: M.ERS 09:32 → M.TBA-ER 12:03
PROVIDERS: Family Medicine; ADMIT Internal Medicine; ATTEND Internal Medicine
PROC: 0W3P8ZZ Control Bleeding in Gastrointestinal Tract, Via Natural or Artificial Opening Endoscopic (ICD-10-PCS; principal; 2020-09-30)
PROC: 0DB98ZX Excision of Duodenum, Via Natural or Artificial Opening Endoscopic, Diagnostic (ICD-10-PCS; principal; 2020-09-30)
DX: K92.2 Gastrointestinal hemorrhage, unspecified (principal); D62 Acute posthemorrhagic anemia; K58.9 Irritable bowel syndrome, unspecified; K44.9 Diaphragmatic hernia without obstruction or gangrene; K31.9 Disease of stomach and duodenum, unspecified; K64.4 Residual hemorrhoidal skin tags; E86.0 Dehydration; N18.30 Chronic kidney disease, stage 3 unspecified; D50.9 Iron deficiency anemia, unspecified; I12.9 Hypertensive chronic kidney disease with stage 1 through stage 4 chronic kidney disease, or unspecified chronic kidney disease; Z20.822 Contact with and (suspected) exposure to COVID-19; Z79.899 Other long term (current) drug therapy; Z88.2 Allergy status to sulfonamides; Z88.1 Allergy status to other antibiotic agents; Z88.8 Allergy status to other drugs, medicaments and biological substances; Z87.891 Personal history of nicotine dependence

== ENCOUNTER 2020-10-17 00:29 | Emergency (ER) | payer OTHER ==
[~2020-10-17] VITALS: Ht 170.2 cm; Wt 86.2 kg
[2020-10-17 01:06] LABS: ABSOLUTE LYMPHOCYTES 1.1 thou/uL (0.8-5.3); ABSOLUTE MONOCYTES 0.4 thou/uL (0.0-1.2); BASOPHILS 0.6 %; EOSINOPHILS 0.1 %; HEMATOCRIT 27.5 % (37.0-47.0); HEMOGLOBIN 8.6 gm/dL (12.0-15.0); LYMPHOCYTES 32.2 %; MCH 24.9 pg (26.0-34.0); MCHC 31.2 g/dL (28.0-37.0); MCV 79.7 fL (80.0-100.0); MPV 6.7 fl. (7.2-11.1); NUCLEATED RBCS 0 /100WBC; PLATELET COUNT* 382 thou/uL (150-400); POLYS 57.1 %; RBC 3.45 mil/uL (4.20-5.00); RDW-CV 20.2 % (10.5-14.5); WBC 3.6 thou/uL (4.0-11.0)
[2020-10-17 01:14] LABS: INR 0.9
[2020-10-17 01:19] LABS: CALCIUM 8.7 mg/dL (8.5-10.1); POTASSIUM 3.6 mmol/L (3.5-5.1)
[2020-10-17 01:29] LABS: ALBUMIN 3.3 g/dL (3.4-5.0); MAGNESIUM 2.2 mg/dL (1.8-2.4); TOTAL BILIRUBIN 0.3 mg/dL (<0.1-1.0); TOTAL PROTEIN 5.7 g/dL (6.4-8.2)
[2020-10-17 02:05] LABS: URINE BILIRUBIN NEGATIVE (Negative); URINE BLOOD NEGATIVE (Negative); URINE CLARITY CLEAR; URINE COLOR YELLOW; URINE GLUCOSE-RANDOM NEGATIVE (Negative); URINE KETONES NEGATIVE (Negative); URINE LEUKOCYTES-REFLEX NEGATIVE (Negative); URINE NITRITE-REFLEX NEGATIVE (Negative); URINE PROTEIN NEGATIVE (Negative); URINE SPECIFIC GRAVITY <= 1.005 (1.005-1.030); URINE UROBILINOGEN 0.2 E.U./dl (0.2-1.0)
[2020-10-17 02:34] LABS: INFLUENZA A ANTIGEN Negative (Negative); INFLUENZA B ANTIGEN Negative (Negative)
[2020-10-17] MEDS ORDERED: AZITHROMYCIN 2250 MG PO ×2 (03:20→03:21)
[2020-10-17 04:00] VITALS: BP 111/52
[2020-10-17 05:30] LABS: PLATELET ESTIMATE ADEQUATE
[2020-10-17 05:31] LABS: ANISOCYTOSIS 1+; HYPOCHROMASIA 1+; OVALOCYTES Occasional; POIKILOCYTOSIS 1+
--- NOTE | 2020-10-17 11:20 | EKG ---
[place] [address] ELECTROCARDIOGRAM REPORT Name: LION DEAL Room: [facility]#: [id number] Admission: 10/17/20 Attend Phys: Discharge: 10/17/20 Date of : 62 Date of Service: 10/17/20 0146 Report #: [id number] THIS REPORT FOR: //name// [facility] ED Test Date: 2020-10-17 Test Time: 01:46:56 Pat Name: LION DEAL Department: Room: Gender: F Construction Services Technician: [facility] : 1960 Requested By: Katarina Vasques Order Number: [id number] MD: Andres Stanley Measurements Intervals [place] Rate: 87 P: 58 [place]: 140 QRS: 47 QRSD: 99 T: 34 QT: 345 QTc: 415 Interpretive Statements Sinus rhythm Compared to ECG 09/30/2020 11:49:02 no change Electronically Signed On 10-17-2020 11:20:28 COREMAKER MACHINE by Andres Stanley [email or web address] <ELECTRONICALLY SIGNED> By: Andres Stanley MD, [facility] 10/17/20 1120 0146 0146 Andres Stanley MD, [facility] /EPI
== END 2020-10-17 04:00 | disposition home or self-care (01) ==
LOC: M.ERS 00:29
PROVIDERS: Emergency Medicine
DX: J18.9 Pneumonia, unspecified organism (principal); R06.00 Dyspnea, unspecified; I10 Essential (primary) hypertension; Z86.2 Personal history of diseases of the blood and blood-forming organs and certain disorders involving the immune mechanism; Z79.899 Other long term (current) drug therapy; Z87.891 Personal history of nicotine dependence; Z88.1 Allergy status to other antibiotic agents; Z88.2 Allergy status to sulfonamides; Z88.8 Allergy status to other drugs, medicaments and biological substances; Z20.828 Contact with and (suspected) exposure to other viral communicable diseases

== ENCOUNTER → 2020-11-20 | Outpatient (CLI) | payer OTHER ==
[~2020-11-20] MED LIST changes: +AZITHROMYCIN 2250 MG PO
== END ==
LOC: M.RAD 08:50
PROVIDERS: ATTEND Internal Medicine Gastroenterology
DX: K44.9 Diaphragmatic hernia without obstruction or gangrene (principal); K22.8 Other specified diseases of esophagus; D50.9 Iron deficiency anemia, unspecified

== ENCOUNTER → 2020-12-13 | Outpatient (CLI) | payer OTHER ==
[2020-12-13 16:02] LABS: HEMATOCRIT 37.5 % (37.0-47.0); HEMOGLOBIN 12.5 gm/dL (12.0-15.0); MCH 28.7 pg (26.0-34.0); MCHC 33.4 g/dL (28.0-37.0); MPV 6.7 fl. (7.2-11.1); NUCLEATED RBCS 0 /100WBC; PLATELET COUNT* 388 thou/uL (150-400); RBC 4.36 mil/uL (4.20-5.00); RDW-CV 20.2 % (10.5-14.5); WBC 6.4 thou/uL (4.0-11.0)
[2020-12-13 16:32] LABS: ABSOLUTE BASOPHILS 0.1 thou/uL (0.0-0.2); ABSOLUTE EOSINOPHILS 0.1 thou/uL (0.0-0.7); ABSOLUTE LYMPHOCYTES 1.7 thou/uL (0.8-5.3); ABSOLUTE MONOCYTES 0.6 thou/uL (0.0-1.2); ABSOLUTE NEUTROPHILS 3.9 thou/uL (1.6-8.1); BASOPHILS 1.3 %; EOSINOPHILS 2.3 %; LYMPHOCYTES 26.8 %; MONOCYTES 8.8 %; POLYS 60.8 %
[2020-12-13 16:33] LABS: ANISOCYTOSIS 1+; PLATELET ESTIMATE ADEQUATE
[2020-12-13 16:34] LABS: POIKILOCYTOSIS 1+
[2020-12-13 17:18] LABS: ESR (SEDRATE) 2 mm/hr (0-30)
== END ==
LOC: M.LAB 15:43
PROVIDERS: ATTEND Internal Medicine Gastroenterology
DX: D50.9 Iron deficiency anemia, unspecified (principal)

== ENCOUNTER → 2021-02-14 | Outpatient (CLI) | payer OTHER ==
[2021-02-14 15:59] LABS: ABSOLUTE EOSINOPHILS 0.1 thou/uL (0.0-0.7); ABSOLUTE LYMPHOCYTES 1.5 thou/uL (0.8-5.3); ABSOLUTE MONOCYTES 0.5 thou/uL (0.0-1.2); ABSOLUTE NEUTROPHILS 4.1 thou/uL (1.6-8.1); BASOPHILS 0.7 %; EOSINOPHILS 1.3 %; HEMOGLOBIN 12.8 gm/dL (12.0-15.0); MCH 30.4 pg (26.0-34.0); MCHC 33.8 g/dL (28.0-37.0); MONOCYTES 7.7 %; NUCLEATED RBCS 0 /100WBC; PLATELET COUNT* 367 thou/uL (150-400); POLYS 66.3 %; RBC 4.22 mil/uL (4.20-5.00); RDW-CV 13.5 % (10.5-14.5); WBC 6.2 thou/uL (4.0-11.0)
[2021-02-14 16:03] LABS: CALCIUM 8.9 mg/dL (8.5-10.1); CREATININE 0.9 mg/dL (0.6-1.3); POTASSIUM 3.6 mmol/L (3.5-5.1)
[2021-02-14 16:56] LABS: ESR (SEDRATE) 2 mm/hr (0-30)
== END ==
LOC: M.LAB 15:28
PROVIDERS: ATTEND Internal Medicine Gastroenterology
DX: L65.9 Nonscarring hair loss, unspecified (principal); G43.709 Chronic migraine without aura, not intractable, without status migrainosus; D50.9 Iron deficiency anemia, unspecified

== ENCOUNTER → 2021-06-09 | Outpatient (CLI) | payer OTHER ==
[2021-06-09 08:14] LABS: ABSOLUTE LYMPHOCYTES 2.2 thou/uL (0.8-5.3); ABSOLUTE MONOCYTES 0.7 thou/uL (0.0-1.2); ABSOLUTE NEUTROPHILS 5.7 thou/uL (1.6-8.1); MCHC 32.2 g/dL (28.0-37.0); MONOCYTES 8.3 %; NUCLEATED RBCS 0 /100WBC
[2021-06-09 08:15] LABS: ABSOLUTE BASOPHILS 0.1 thou/uL (0.0-0.2); ABSOLUTE EOSINOPHILS 0.1 thou/uL (0.0-0.7); BASOPHILS 0.7 %; EOSINOPHILS 0.7 %; HEMATOCRIT 37.9 % (37.0-47.0); HEMOGLOBIN 12.2 gm/dL (12.0-15.0); LYMPHOCYTES 25.2 %; MCH 29.1 pg (26.0-34.0); MCV 90.3 fL (80.0-100.0); MPV 7.1 fl. (7.2-11.1); PLATELET COUNT* 386 thou/uL (150-400); POLYS 65.1 %; RDW-CV 14.5 % (10.5-14.5); WBC 8.7 thou/uL (4.0-11.0)
[2021-06-09 10:12] LABS: ESR (SEDRATE) 3 mm/hr (0-30)
== END ==
LOC: M.LAB 07:42
PROVIDERS: ATTEND Internal Medicine Gastroenterology
DX: D50.9 Iron deficiency anemia, unspecified (principal)

== ENCOUNTER 2021-10-13 11:30 | Emergency (ER) | payer OTHER ==
[~2021-10-13] VITALS: Ht 170.2 cm; Wt 84.4 kg
[2021-10-13 12:35] LABS: URINE BILIRUBIN NEGATIVE (Negative); URINE BLOOD NEGATIVE (Negative); URINE CLARITY CLEAR; URINE COLOR YELLOW; URINE GLUCOSE-RANDOM NEGATIVE (Negative); URINE KETONES NEGATIVE (Negative); URINE LEUKOCYTES-REFLEX TRACE (Negative); URINE NITRITE-REFLEX NEGATIVE (Negative); URINE PROTEIN NEGATIVE (Negative); URINE SPECIFIC GRAVITY 1.015 (1.005-1.030); URINE UROBILINOGEN 0.2 E.U./dl (0.2-1.0)
[2021-10-13 12:50] LABS: ABSOLUTE BASOPHILS 0.1 thou/uL (0.0-0.2); ABSOLUTE EOSINOPHILS 0.1 thou/uL (0.0-0.7); ABSOLUTE LYMPHOCYTES 1.9 thou/uL (0.8-5.3); ABSOLUTE MONOCYTES 0.7 thou/uL (0.0-1.2); ABSOLUTE NEUTROPHILS 4.3 thou/uL (1.6-8.1); BASOPHILS 0.9 %; EOSINOPHILS 1.4 %; HEMOGLOBIN 11.9 gm/dL (12.0-15.0); LYMPHOCYTES 26.5 %; MCH 29.5 pg (26.0-34.0); MCHC 33.2 g/dL (28.0-37.0); MCV 88.9 fL (80.0-100.0); MONOCYTES 9.7 %; NUCLEATED RBCS 0 /100WBC; PLATELET COUNT* 457 thou/uL (150-400); POLYS 61.5 %; RBC 4.05 mil/uL (4.20-5.00); RDW-CV 14.3 % (10.5-14.5); WBC 7.1 thou/uL (4.0-11.0)
[2021-10-13 13:11] LABS: CREATININE 0.8 mg/dL (0.6-1.3); POTASSIUM 3.9 mmol/L (3.5-5.1)
[2021-10-13 13:23] LABS: ALBUMIN 3.9 g/dL (3.4-5.0); TOTAL BILIRUBIN 0.2 mg/dL (<0.1-1.0); TOTAL PROTEIN 7.2 g/dL (6.4-8.2)
--- NOTE | 2021-10-13 13:42 | EKG ---
[place] [address] ELECTROCARDIOGRAM REPORT Name: LION DEAL Room: [facility]#: [id number] Admission: 10/13/21 Attend Phys: Discharge: Date of : 62 Date of Service: 10/13/21 1240 Report #: [id number] THIS REPORT FOR: //name// [facility] ED Test Date: 2021-10-13 Test Time: 12:40:30 Pat Name: LION DEAL Department: Room: Gender: F Automobile Club Information Clerk: : 1960 Requested By: Vickie Goldstein Order Number: [id number] MD: Andres Stanley Measurements Intervals [place] Rate: 87 P: 44 [place]: 136 QRS: 26 QRSD: 110 T: 26 QT: 354 QTc: 426 Interpretive Statements Sinus rhythm Probable left atrial enlargement Abnormal inferior Q waves Baseline wander in lead(s) V6 Compared to ECG 10/17/2020 01:46:56 no change Electronically Signed On 10-13-2021 13:42:47 INSURANCE AGENCY SALES MANAGER by Andres Stanley [email or web address] <ELECTRONICALLY SIGNED> By: Andres Stanley MD, FACC 10/13/21 1342 1240 1240 Andres Stanley MD, [facility] /EPI
[2021-10-13 16:56] VITALS: BP 172/88
== END 2021-10-13 16:57 | disposition home or self-care (01) ==
LOC: M.ERS 11:30
PROVIDERS: Nurse Practitioner Family
DX: R42 Dizziness and giddiness (principal); R51.9 Headache, unspecified; I10 Essential (primary) hypertension; E66.9 Obesity, unspecified; Z68.29 Body mass index [BMI] 29.0-29.9, adult; Z79.899 Other long term (current) drug therapy; Z88.2 Allergy status to sulfonamides; Z88.1 Allergy status to other antibiotic agents; Z87.891 Personal history of nicotine dependence

== ENCOUNTER 2021-10-27 22:34 | Emergency (ER) | payer OTHER ==
[~2021-10-27] VITALS: Ht 170.2 cm; Wt 81.7 kg
[2021-10-27] MEDS ORDERED: TIADYLT ER180 MG PO (23:11)
[2021-10-28 00:26] VITALS: BP 139/73
--- NOTE | 2021-10-28 08:40 | EKG ---
[place] [address] ELECTROCARDIOGRAM REPORT Name: TOYINLION NORMAN Room: [facility]#: [id number] Admission: 10/27/21 Attend Phys: Discharge: 10/28/21 Date of : 62 Date of Service: 10/27/210 Report #: [id number] THIS REPORT FOR: //name// [facility] ED Test Date: 2021-10-27 Test Time: 23:10:53 Pat Name: LION DEAL Department: Room: Gender: Scrap Charger: [place] : 1960 Requested By: Katarina Vasques Order Number: [id number] MD: Arnoldo Geiger Measurements Intervals [place] Rate: 85 P: 33 [place]: 145 QRS: 22 QRSD: 109 T: 22 QT: 345 QTc: 411 Interpretive Statements Sinus rhythm Probable left atrial enlargement Inferior Q waves noted Compared to ECG 10/13/2021 12:40:30 No significant changes Electronically Signed On 10-28-2021 8:40:14 RETAIL SUPERVISOR by Arnoldo Geiger [email or web address] <ELECTRONICALLY SIGNED> By: Arnoldo Geiger MD, FACC 10/28/21 0840 2310 Arnoldo Geiger MD, [facility] /EPI
== END 2021-10-28 00:26 | disposition home or self-care (01) ==
LOC: M.ERS 22:34
DX: T17.928A Food in respiratory tract, part unspecified causing other injury, initial encounter (principal); I10 Essential (primary) hypertension; Z79.899 Other long term (current) drug therapy; Z88.2 Allergy status to sulfonamides; Z88.1 Allergy status to other antibiotic agents; X58.XXXA Exposure to other specified factors, initial encounter; Y93.89 Activity, other specified; Y92.89 Other specified places as the place of occurrence of the external cause; Y99.8 Other external cause status